=== PATIENT | male | born 1980 | race Caucasian/White ===

== ENCOUNTER 2018-05-14 17:28 | Emergency (ER) | payer OTHER ==
[~2018-05-14] VITALS: Ht 182.9 cm; Wt 99.8 kg
[~2018-05-14 17:28] MED LIST: FLOMAX0.4 M1 PO; IBUPROFEN800 M1 PO; SUBOXONE 2 MG-1 EACH PO
--- NOTE | 2018-05-14 18:57 | CT SCAN REPORT ---
EXAMINATION: CT ABDOMEN AND PELVIS WITHOUT CONTRAST CLINICAL INFORMATION: Epigastric pain. COMPARISON: CT abdomen pelvis 06/30/2017 TECHNIQUE: Multidetector volumetric imaging was performed from the superior aspect of the liver through the pubic symphysis. Sagittal and coronal reformatted images were obtained on the technologist's workstation. DLP: 464.75 mGy-cm FINDINGS: LUNG BASES: The visualized lung bases are unremarkable. LIVER, GALLBLADDER, AND BILIARY TREE: The liver is normal in size, shape, and attenuation. No focal hepatic lesion or biliary ductal dilatation is present. There are multiple tiny calcification in the lumen of the gallbladder likely due to multiple small gallstones. No edema around the gallbladder. There is no bile duct dilatation. PANCREAS: Unremarkable. SPLEEN: Unremarkable. ADRENAL GLANDS: Unremarkable. KIDNEYS AND URETERS: There are a couple of adjacent tiny stones measuring about 1 mm in the upper pole of the right kidney. There is no stone in the left kidney. There is no hydronephrosis. No ureteral stone. BLADDER: Unremarkable. GASTROINTESTINAL TRACT: The small and large bowel are unremarkable. The appendix is unremarkable. ABDOMINAL WALL: No significant hernia is appreciated. LYMPH NODES: Normal. VASCULAR: Unremarkable. PELVIC VISCERA: Unremarkable. OSSEOUS STRUCTURES: Unremarkable. IMPRESSION: 1. No acute abnormality of the abdomen and pelvis. 2. Probable cholelithiasis. No acute change of gallbladder wall and no bile duct dilatation. 3. Tiny right renal stones. No hydronephrosis or ureteral calculus.
[2018-05-14 18:58] LABS: ABSOLUTE BASOPHIL COUNT 0 /CUMM (0.0-0.2); ABSOLUTE EOSINOPHIL COUNT 0.1 /CUMM (0.0-0.7); ABSOLUTE GRANULOCYTE CT 4.7 /CUMM (1.4-6.5); ABSOLUTE LYMPH COUNT 1.3 /CUMM (1.2-3.4); ABSOLUTE MONOCYTE COUNT 0.3 /CUMM (0.10-0.60); BASOPHIL % 0.4 % (0.0-2.0); EOSINOPHIL % 1.3 % (0-5); GRANULOCYTE % 73.3 % (42.2-75.2); HEMATOCRIT 41.8 % (42-52); MEAN CORPUSCULAR HGB 27.6 PG (27.0-31.0); MEAN CORPUSCULAR HGB CONC 32.8 G/DL (33.0-37.0); MEAN CORPUSCULAR VOLUME 84.1 FL (80.0-94.0); MEAN PLATELET VOLUME 6.9 FL (7.4-10.4); PLATELET COUNT 271 /CUMM (130-400); RBC DISTRIBUTION WIDTH 13.1 % (11.5-14.5); RED BLOOD CELL CT 4.97 /CUMM (4.70-6.10); WHITE BLOOD CELL COUNT 6.4 /CUMM (4.8-10.8)
--- NOTE | 2018-05-14 20:52 | ED GI/GU/ABDOMINAL COMPLAINT ---
History of Present Illness General Chief Complaint: General Adult Stated Complaint: "IM HAVING BAD ACID REFLUX" Source: patient, old records Exam Limitations: no limitations Vital Signs & Intake/Output Vital Signs & Intake/Output Vital Signs Date Time Temp Pulse Resp B/P B/P Pulse O2 O2 Flow FiO2 Mean Ox Delivery Rate 05/15 0108 97.6 69 20 112/78 99 Room Air 05/14 2024 98.4 60 16 126/74 100 Room Air 05/14 1746 96.3 62 15 152/89 100 Room Air Room Air ED Intake and Output 05/15 0000 05/14 1200 Intake Total Output Total Balance Patient 220 lb Weight Weight Reported by Patient Measurement Method Allergies Coded Allergies: No Known Allergies (05/14/18) Triage Note: PT TO ED FOR C/C OF MID UPPER ABD PAIN. "BAD ACID REFLUX ATTACK." STARTED APPROX 30 MINS AGO. DENIES NAUSEA. HX OF GERD, ULCERS. Triage Nurses Notes Reviewed? yes Onset: yesterday Duration: day(s):, continues in ED, waxing and waning Timing: recent history Quality/Severity: aching, burning, moderate, severe Location: epigastric Radiation: no radiation Activities at Onset: rest Prior Abdominal Problems: similar symptoms Past Sexual History: Unobtainable at this time Modifying Factors: Worsens With: eating. Associated Symptoms: abdominal pain, heartburn, loss of appetite, nausea/ vomiting HPI: 1 day prior to admission patient reports episodic epigastric discomfort burning moderate severe similar to his acid reflux. He medicated himself with improvement. Prior to admission he had another episode that was severe he again medicated himself with little improvement. Denies fever chills vomiting diarrhea chest pain cough shortness breath headache dysuria rash bleeding. (Cherri DELGADO,Bunny) Reconcile Medications Buprenorphine HCl/Naloxone HCl (Suboxone 2 MG-0.5 MG Sl Film) 2 MG-0.5 MG FILM 2 MG PO DAILY WITHDRAWAL (Reported) Esomeprazole (Nexium) 40 MG CAPSULE.DR 1 CAP PO BID gerd Ibuprofen 800 MG TABLET 1 TAB PO TID pain Sucralfate (Carafate) 1 GRAM TABLET 1 TAB PO 4 TIMES/DAY gerd/gastritis Tamsulosin HCl (Flomax) 0.4 MG CAP.ER.24H 1 CAP PO DAILY kidney stone (oHward DELGADO,Jonathon Salter) Past History Travel History Traveled to [place] past 21 day No Medical History Any Pertinent Medical History? see below for history Neurological: NONE EENT: NONE Cardiovascular: NONE Respiratory: NONE Gastrointestinal: REFLUX Hepatic: NONE Renal: NONE Musculoskeletal: PAIN MANAGEMENT Psychiatric: NONE Endocrine: NONE Blood Disorders: NONE Cancer(s): NONE Surgical History Surgical History: none Psychosocial History What is your primary language Chinese Tobacco Use: Never used ETOH Use: denies use Illicit Drug Use: denies illicit drug use Family History Hx Contributory? No (Bunny Harley MD) Review of Systems Review of Systems Constitutional: Reports: no symptoms. EENTM: Reports: no symptoms. Respiratory: Reports: no symptoms. Cardiovascular: Reports: no symptoms. GI: Reports: see HPI, abdominal pain, nausea. Genitourinary: Reports: no symptoms. Musculoskeletal: Reports: no symptoms. Skin: Reports: no symptoms. Neurological/Psychological: Reports: no symptoms. Hematologic/Endocrine: Reports: no symptoms. Immunologic/Allergic: Reports: no symptoms. All Other Systems: Reviewed and Negative (Bunny Harley MD) Physical Exam Physical Exam General Appearance: well developed/nourished, alert, awake, anxious, moderate distress, obese Head: atraumatic, normal appearance Eyes: Bilateral: normal appearance, PERRL, EOMI. Ears, Nose, Throat, Mouth: hearing grossly normal, moist mucous membrane Neck: normal inspection, supple, full range of motion, normal alignment Respiratory: normal breath sounds, chest non-tender, no respiratory distress, quiet respiration, lungs clear Cardiovascular: regular rate/rhythm, normal peripheral pulses, norml femoral pulses equa Peripheral Pulses: 4+ carotid (R), 4+ carotid (L) Gastrointestinal: normal bowel sounds, soft, non-tender, no organomegaly Male Genitals: normal genitalia Back: normal inspection, normal range of motion, no vertebral tenderness Extremities: normal range of motion, no ligament instability Neurologic/Psych: no motor/sensory deficits, awake, alert, oriented x 3, normal gait, 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 No Sepsis Present: No Sepsis Focused Exam Completed? No (Bunny Harley MD) Progress Differential Diagnosis: biliary colic, gastritis, hernia, pancreatitis Plan of Care: Orders Procedure Date/time Status TROPONIN LEVEL 05/14 1746 Complete LIPASE 05/14 1746 Complete LACTIC ACID 05/14 1746 Complete COMPREHENSIVE METABOLIC PANEL 05/14 1746 Complete CBC WITHOUT DIFFERENTIAL 05/14 1746 Complete EKG 05/14 1746 Active Laboratory Tests 05/14/182045: Lactic Acid Cancelled 05/14/18 1848: Anion Gap 11, Estimated GFR > 60, BUN/Creatinine Ratio 12.7, Glucose 117 H, Lactic Acid 1.8, Calcium 9.7, Total Bilirubin 0.6, AST 95 H, ALT 55, Alkaline Phosphatase 79, Troponin I < 0.01, Total Protein 6.7, Albumin 4.2, Globulin 2.5, Albumin/Globulin Ratio 1.7, Lipase 206, CBC w Diff NO MAN DIFF REQ, RBC 4.97, MCV 84.1, MCH 27.6, MCHC 32.8 L, RDW 13.1, MPV 6.9 L, Gran % 73.3, Lymphocytes % 19.9 L, Monocytes % 5.1, Eosinophils % 1.3, Basophils % 0.4, Absolute Granulocytes 4.7, Absolute Lymphocytes 1.3, Absolute Monocytes 0.3, Absolute Eosinophils 0.1, Absolute Basophils 0 Initial ED EKG: none Hand-Off Endorsed To: Howard DELGADO,Jonathon Salter Endorsed Time: 2216 Pending: other (clinical improvement) Comments: The patient was updated with CT findings and he is aware of gallstones and renal stones that are likely not the cause of his discomfort. (Cherri DELGADO,Bunny) Diagnostic Imaging: Viewed by Me: CT Scan. Discussed w/RAD: CT Scan. Radiology Impression: PATIENT: JEANNE WELLINGTON PRESENT AGE: 37 PATIENT ACCOUNT NO: [id number] : 79 LOCATION: [facility] ORDERING PHYSICIAN: Zane MCMULLEN SERVICE DATE: 05/14/18 EXAM TYPE: CAT - CT ABD & PELVIS W/O IV CONTRAS EXAMINATION: CT ABDOMEN AND PELVIS WITHOUT CONTRAST CLINICAL INFORMATION: Epigastric pain. COMPARISON: CT abdomen pelvis 06/30/2017 TECHNIQUE: Multidetector volumetric imaging was performed from the superior aspect of the liver through the pubic symphysis. Sagittal and coronal reformatted images were obtained on the technologist's workstation. DLP: 464.75 mGy-cm FINDINGS: LUNG BASES: The visualized lung bases are unremarkable. LIVER, GALLBLADDER, AND BILIARY TREE: The liver is normal in size, shape, and attenuation. No focal hepatic lesion or biliary ductal dilatation is present. There are multiple tiny calcification in the lumen of the gallbladder likely due to multiple small gallstones. No edema around the gallbladder. There is no bile duct dilatation. PANCREAS: Unremarkable. SPLEEN: Unremarkable. ADRENAL GLANDS: Unremarkable. KIDNEYS AND URETERS: There are a couple of adjacent tiny stones measuring about 1 mm in the upper pole of the right kidney. There is no stone in the left kidney. There is no hydronephrosis. No ureteral stone. BLADDER: Unremarkable. GASTROINTESTINAL TRACT: The small and large bowel are unremarkable. The appendix is unremarkable. ABDOMINAL WALL: No significant hernia is appreciated. LYMPH NODES: Normal. VASCULAR: Unremarkable. PELVIC VISCERA: Unremarkable. OSSEOUS STRUCTURES: Unremarkable. IMPRESSION: 1. No acute abnormality of the abdomen and pelvis. 2. Probable cholelithiasis. No acute change of gallbladder wall and no bile duct dilatation. 3. Tiny right renal stones. No hydronephrosis or ureteral calculus. DICTATED BY: Luis Sequeira MD DATE/TIME DICTATED:05/14/181847 INVESTIGATION CLERK:SKYLER DATE/TIME TRANSCRIBED:05/14/181847 CONFIDENTIAL, DO NOT COPY WITHOUT APPROPRIATE AUTHORIZATION. <Electronically signed in Other Vendor System> SIGNED BY: Luis Sequeira MD 05/14/181856 (Howard DELGADO,Jonathon Salter) Departure Departure Disposition: STILL A PATIENT Condition: Stable Clinical Impression Primary Impression: Gastroesophageal reflux disease Referrals: Kaylene DELGADO,Laurence Miranda (PCP/Family) Departure Forms: Customer Survey General Discharge Information (Cherri DELGADO,Bunny) Departure Prescriptions: Current Visit Scripts Esomeprazole (Nexium) 1 CAP PO BID #60 CAP Sucralfate (Carafate) 1 TAB PO 4 TIMES/DAY #120 TAB Ref 1 Comments 05/15/18, 1AM... pt feels better... will rx nexium 40mg bid and carafate four times a day... follow up with your doctor this week. (Howard DELGADO,Jonathon Salter)
[2018-05-15] MEDS ORDERED: NEXIUM40 M1 PO (01:04)
[2018-05-15] MEDS ORDERED: CARAFATE1 G1 PO (01:04)
[2018-05-15 01:08] VITALS: BP 112/78
== END 2018-05-15 01:15 ==
LOC: ERH 17:28
PROVIDERS: Physician Assistant Medical
DX: K21.9 Gastro-esophageal reflux disease without esophagitis (principal); R10.13 Epigastric pain
CPT/HCPCS: 74176; 93005; 93010; 96374; 96375; J0131; J2765

== ENCOUNTER 2018-05-22 21:05 | Emergency (ER) | payer OTHER ==
[~2018-05-22] VITALS: Ht 185.4 cm; Wt 99.8 kg
[~2018-05-22 21:05] MED LIST changes: +CARAFATE1 G1 PO; +NEXIUM40 M1 PO
[2018-05-22 22:13] LABS: ABSOLUTE BASOPHIL COUNT 0 /CUMM (0.0-0.2); ABSOLUTE EOSINOPHIL COUNT 0.1 /CUMM (0.0-0.7); ABSOLUTE GRANULOCYTE CT 3.2 /CUMM (1.4-6.5); ABSOLUTE LYMPH COUNT 1.2 /CUMM (1.2-3.4); ABSOLUTE MONOCYTE COUNT 0.3 /CUMM (0.10-0.60); BASOPHIL % 0.8 % (0.0-2.0); EOSINOPHIL % 1.4 % (0-5); GRANULOCYTE % 66.9 % (42.2-75.2); HEMATOCRIT 40.8 % (42-52); MEAN CORPUSCULAR HGB 27.6 PG (27.0-31.0); MEAN CORPUSCULAR HGB CONC 33.2 G/DL (33.0-37.0); MEAN CORPUSCULAR VOLUME 83.1 FL (80.0-94.0); PLATELET COUNT 238 /CUMM (130-400); RED BLOOD CELL CT 4.92 /CUMM (4.70-6.10); WHITE BLOOD CELL COUNT 4.8 /CUMM (4.8-10.8)
--- NOTE | 2018-05-22 22:29 | ED GI/GU/ABDOMINAL COMPLAINT ---
History of Present Illness General Chief Complaint: Abdominal Pain/Flank Pain Stated Complaint: ABD PAIN Source: patient, family, old records Exam Limitations: no limitations Vital Signs & Intake/Output Vital Signs & Intake/Output Vital Signs Date Time Temp Pulse Resp B/P B/P Pulse O2 O2 Flow FiO2 Mean Ox Delivery Rate 05/23 0059 96.5 65 18 118/61 98 Room Air 05/22 2243 Room Air 05/22 2114 95.9 60 20 128/82 98 Room Air ED Intake and Output 05/23 0000 05/22 1200 Intake Total 0 Output Total Balance 0 Intake, Oral 0 Patient 220 lb Weight Weight Reported by Patient Measurement Method Allergies Coded Allergies: No Known Allergies (05/14/18) Reconcile Medications Buprenorphine HCl/Naloxone HCl (Suboxone 2 MG-0.5 MG Sl Film) 2 MG-0.5 MG FILM 2 MG PO DAILY WITHDRAWAL (Reported) Esomeprazole (Nexium) 40 MG CAPSULE.DR 1 CAP PO BID gerd Ibuprofen 800 MG TABLET 1 TAB PO TID pain Metoclopramide HCl (Reglan) 10 MG TABLET 1 TAB PO 4 TIMES/DAY PRN epigastric pain, nausea 30 minutes before meals and bedtime Sucralfate (Carafate) 1 GRAM TABLET 1 TAB PO 4 TIMES/DAY gerd/gastritis Tamsulosin HCl (Flomax) 0.4 MG CAP.ER.24H 1 CAP PO DAILY kidney stone Triage Note: PT HERE WITH C/O EPIGASTRIC PAIN THAT RADIATES TO SHOULDER BLADES. PT SEEN HERE RECENTLY AND DX WITH GALLSTONES. PT REPORTS THAT THE PAIN BEGAN TONIGHT AFTER EATING DINNER. PT DENIES N/V/D "JUST SWEATY AND PAIN". Triage Nurses Notes Reviewed? yes Onset: Just prior to arrival Duration: minute(s):, constant, continues in ED Timing: single episode today Quality/Severity: aching, severe Location: epigastric Radiation: back Activities at Onset: eating (After) Prior Abdominal Problems: similar symptoms Past Sexual History: Unobtainable at this time Modifying Factors: Worsens With: palpation. Associated Symptoms: abdominal pain HPI: Prior to admission after eating patient developed severe sharp epigastric pain radiating to his back constant worse with palpation. He denies fever chills vomiting diarrhea chest pain cough shortness breath headache dysuria rash bleeding. Past History Travel History Traveled to [place] past 21 day No Medical History Any Pertinent Medical History? see below for history Neurological: NONE EENT: NONE Cardiovascular: NONE Respiratory: NONE Gastrointestinal: REFLUX Hepatic: cholelithiasis Renal: NONE Musculoskeletal: PAIN MANAGEMENT Psychiatric: NONE Endocrine: NONE Blood Disorders: NONE Cancer(s): NONE Surgical History Surgical History: none Psychosocial History What is your primary language Slovenian Tobacco Use: Never used ETOH Use: denies use Illicit Drug Use: denies illicit drug use Family History Hx Contributory? No Review of Systems Review of Systems Constitutional: Reports: no symptoms. EENTM: Reports: no symptoms. Respiratory: Reports: no symptoms. Cardiovascular: Reports: no symptoms. GI: Reports: see HPI, abdominal pain. Genitourinary: Reports: no symptoms. Musculoskeletal: Reports: no symptoms. Skin: Reports: no symptoms. Neurological/Psychological: Reports: no symptoms. Hematologic/Endocrine: Reports: no symptoms. Immunologic/Allergic: Reports: no symptoms. All Other Systems: Reviewed and Negative Physical Exam Physical Exam General Appearance: well developed/nourished, alert, awake, anxious, moderate distress Head: atraumatic, normal appearance Eyes: Bilateral: normal appearance, PERRL, EOMI, normal inspection. Ears, Nose, Throat, Mouth: hearing grossly normal, moist mucous membrane Neck: normal inspection, supple, full range of motion, normal alignment Respiratory: normal breath sounds, chest non-tender, no respiratory distress, quiet respiration, lungs clear Cardiovascular: regular rate/rhythm, normal peripheral pulses, norml femoral pulses equa Peripheral Pulses: 4+ carotid (R), 4+ carotid (L) Gastrointestinal: normal bowel sounds, soft, no organomegaly, tenderness ( Epigastric mild) Male Genitals: normal genitalia Back: normal inspection, normal range of motion Extremities: normal range of motion, no ligament instability Neurologic/Psych: no motor/sensory deficits, awake, alert, oriented x 3, normal gait, normal mood/affect, 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 No Sepsis Present: No Sepsis Focused Exam Completed? No Progress Differential Diagnosis: biliary colic, gastritis, pancreatitis, ureterolithiasis , UTI/pyelo Plan of Care: Orders Procedure Date/time Status URINALYSIS 05/22 2152 Complete MAGNESIUM 05/22 2152 Complete LIPASE 05/22 2152 Complete COMPREHENSIVE METABOLIC PANEL 05/22 2152 Complete CBC WITHOUT DIFFERENTIAL 05/22 2152 Complete Laboratory Tests 05/22/18 2337: Urinalysis LIGHT H, Urine Color YEL, Urine Clarity CLEAR, Urine pH 6.0, Ur Specific [place] 1.010, Urine Protein NEG, Urine Ketones NEG, Urine Nitrite NEG, Urine Bilirubin NEG, Urine Urobilinogen 1.0, Ur Leukocyte Esterase NEG, Ur Microscopic SEDIMENT EXAMINED, Urine RBC 5-10 H, Urine WBC 1-3 H, Ur Epithelial Cells FEW, Urine Crystals 1+ CA OX H, Urine Bacteria FEW H, Urine Hemoglobin SMALL H, Urine Glucose NEG 05/22/18 2203: Anion Gap 11, Estimated GFR > 60, BUN/Creatinine Ratio 9.0, Glucose 106 H, Calcium 9.3, Magnesium 1.8, Total Bilirubin 0.7, AST 120 H, ALT 106 H, Alkaline Phosphatase 126, Total Protein 6.3, Albumin 3.9, Globulin 2.4, Albumin/ Globulin Ratio 1.6, Lipase 247, CBC w Diff NO MAN DIFF REQ, RBC 4.92, MCV 83.1, MCH 27.6, MCHC 33.2, RDW 13.0, MPV 8.0, Gran % 66.9, Lymphocytes % 25.5, Monocytes % 5.4, Eosinophils % 1.4, Basophils % 0.8, Absolute Granulocytes 3.2, Absolute Lymphocytes 1.2, Absolute Monocytes 0.3, Absolute Eosinophils 0.1, Absolute Basophils 0 Initial ED EKG: none Departure Departure Time of Disposition: 115 Disposition: HOME OR SELF CARE Condition: Stable Clinical Impression Primary Impression: Epigastric abdominal pain Referrals: Kaylene DELGADO,Laurence Miranda (PCP/Family) Departure Forms: Customer Survey General Discharge Information RELEASE- WORK Prescriptions: Current Visit Scripts Metoclopramide HCl (Reglan) 1 TAB PO 4 TIMES/DAY PRN epigastric pain, nausea #30 TAB 30 minutes before meals and bedtime
[2018-05-23 00:59] VITALS: BP 118/61
[2018-05-23] MEDS ORDERED: REGLAN10 M1 PO (01:17)
== END 2018-05-23 01:30 ==
LOC: ERH 21:05
PROVIDERS: Emergency Medicine
DX: R10.13 Epigastric pain (principal)
CPT/HCPCS: 81001; 96374; 96375; J1885; J2765